=== PATIENT | male | born 1930 | race Caucasian/White ===

== ENCOUNTER 2017-05-15 10:15 | Outpatient (CLI) | payer MEDICARE | END 2017-05-15 23:59 | LOC: WOU 10:15 | PROVIDERS: ATTEND Podiatrist Foot & Ankle Surgery | DX: L60.3 Nail dystrophy (principal); G60.9 Hereditary and idiopathic neuropathy, unspecified; H91.90 Unspecified hearing loss, unspecified ear | CPT/HCPCS: G0463 ==